=== PATIENT | female | born 1965 | race Caucasian/White ===

== ENCOUNTER → 2021-02-06 11:31 | Outpatient (CLI) | payer MEDICARE, MEDICAID, SELFPAY ==
--- NOTE | ~2021-02-06 | XR_ITS ---
XR chest 2V DATE: 02/06/2021 11:55 INDICATION: Cough TECHNIQUE: 2 views COMPARISON: 01/10/2019 2 view chest FINDINGS: Normal heart size. Right-sided aortic arch. No hilar or mediastinal enlargement. No pulmonary infiltrate or consolidation, pleural effusion or pulmonary vascular congestion or pneumo thorax. Osteopenia. IMPRESSION: No active cardiopulmonary disease Right-sided aortic arch No significant change since 01/10/2019 Reviewed, dictated and finalized at location A.
== END ==
PROVIDERS: PCP Internal Medicine; Visit Provider Internal Medicine
DX: R05 Cough (principal); Q25.49 Other congenital malformations of aorta
CPT/HCPCS: 71046

== ENCOUNTER → 2021-02-16 01:03 | Outpatient (CLI) | payer MEDICARE, MEDICAID, SELFPAY ==
[2021-02-16 20:53] LABS: SARS-CoV-2 RNA PCR Negative
== END ==
PROVIDERS: PCP Internal Medicine; Visit Provider Internal Medicine Gastroenterology
DX: Z01.812 Encounter for preprocedural laboratory examination (principal); Z20.822 Contact with and (suspected) exposure to COVID-19
CPT/HCPCS: C9803; U0003; U0005

== ENCOUNTER 2021-02-20 04:30 | Day surgery (SDC) | payer MEDICARE, MEDICAID, SELFPAY ==
[2021-02-07 13:54] VITALS: BMI 33.5
[2021-02-20 08:11] VITALS: BP 131/101; PULSE 100; RESP 20; TEMP 36.8; O2SAT 100; BMI 33.1
--- NOTE | 2021-02-20 08:57 | WPDANESEPPF ---
Anes - Initial Pre Proc Eval Procedure: Operation Date: 02/20/21 09:15 Proposed Procedures p Esophagogastroduodenoscopy & Screening Colonoscopy - Shai Dunne MD Date/Time: 02/20/21 08:57 Surgeon: Shai Dunne MD Pre Op Diagnosis: Neoplasm Screening, GERD Patient Data Age: 55 Gender: F Height: 5 ft Weight: 77 kg Last Vital Signs Temp 98.3 F 02/20/21 08:11 Pulse 100 02/20/21 08:11 Resp 20 02/20/21 08:11 BP 131/101 H 02/20/21 08:11 Pulse Ox 100 02/20/21 08:11 Allergies Allergy/AdvReac Type Severity Reaction Status Date / Time erythromycin base Allergy Severe Rash Verified 02/20/21 08:09 Sulfa (Sulfonamide Allergy Severe Rash Verified 02/20/21 08:09 Antibiotics) codeine Allergy Intermediate Rash, SOB Verified 02/20/21 08:09 Home Medications Medication Instructions Recorded Confirmed Type topiramate 100 mg tablet 100 mg PO BID 12/07/19 02/20/21 History albuterol sulfate 2.5 mg INHALATION Q6H PRN 05/30/20 02/20/21 History ascorbic acid (vitamin C) 500 mg 500 mg PO DAILY 05/30/20 02/20/21 History tablet aspirin 81 mg tablet,delayed 81 mg PO DAILY 05/30/20 02/20/21 History release calcium carbonate 500 mg calcium 500 mg PO DAILY 05/30/20 02/20/21 History (1,250 mg) tablet cetirizine 10 mg tablet 10 mg PO DAILY 05/30/20 02/20/21 History lamotrigine 100 mg tablet 100 mg PO BID 05/30/20 02/20/21 History lorazepam 1 mg tablet 1 mg PO QID PRN tablet 05/30/20 02/20/21 History multivitamin 1 tablet PO DAILY 05/30/20 02/20/21 History sennosides 8.6 mg tablet 17.2 mg PO DAILY PRN tablet 05/30/20 02/20/21 History spironolactone 100 mg tablet 100 mg PO DAILY 05/30/20 02/20/21 History vitamin E (dl, acetate) 400 unit 400 unit PO DAILY 05/30/20 02/20/21 History capsule fluticasone 250 mcg-salmeterol 50 1 inhalation INHALATION BID #180 07/27/20 02/20/21 Rx mcg/dose blistr powdr for each inhalation omeprazole 20 mg capsule,delayed 20 mg PO DAILY #90 cap 09/17/20 02/20/21 Rx release gabapentin 300 mg capsule 300 mg PO TID #270 cap 10/12/20 02/20/21 Rx gabapentin 600 mg tablet 600 mg PO TID #270 tablet 10/12/20 02/20/21 Rx montelukast 10 mg tablet 10 mg PO DAILY #90 tablet 10/12/20 02/20/21 Rx cyclobenzaprine 10 mg tablet See Rx Instructions .ROUTE 12/15/20 02/20/21 Rx .COMPLEX #270 tablet simvastatin 20 mg tablet 20 mg PO DAILY #90 tablet 12/15/20 02/20/21 Rx levothyroxine 50 mcg tablet 50 mcg PO DAILY #90 tablet 01/10/21 02/20/21 Rx losartan 50 mg tablet 50 mg PO DAILY #90 tablet 01/10/21 02/20/21 Rx bupropion HCl 150 mg 24 hr tablet, 150 mg PO QAM 02/06/21 02/20/21 History extended release escitalopram oxalate 20 mg tablet 20 mg PO DAILY 02/06/21 02/20/21 History hydrocodone 10 mg-acetaminophen 1 tablet PO Q6H PRN #120 tablet 02/06/21 02/20/21 Rx 325 mg tablet melatonin 5 mg PO HS PRN 02/07/21 02/20/21 History albuterol sulfate 90 mcg/actuation 2 puff INHALATION Q4-6H PRN #18 g 02/18/21 02/20/21 Rx aerosol inhaler Patient hx anesthesia problems: none Family hx anesthesia problems: none PMFSH Past Medical History Medical History (Updated 02/20/21 @ 09:03 by Luca Desai MD) Asthma Esophageal reflux disease Hyperlipidemia Hypertension Hypothyroidism Family History Family History Father Hypertension Family history of arthritis Malignant neoplasm of prostate Mother Hypertension Asthma Family history of malignant neoplasm of breast in first degree relative Family history of malignant neoplasm of kidney Social History Social History Smoking status: Never smoker Second hand tobacco smoke exposure: No Alcohol intake: never Substance use: never Substance use type: does not use Living arrangements: with family Spiritual care concerns: No Anes - Eval Final PreProcedure Day of Procedure
--- NOTE | 2021-02-20 09:06 | PM.HPGS ---
History of Present Illness History of Present Illness Consent: Risks, benefits, and alternatives have been discussed and questions answered. Patient agrees to proceed with procedure. Chief complaint: Neoplasm Screening, GERD Narrative: Selena Drake is a 55 year old female with gerd and bloating on omeprazole, also needs screening colonoscopy (she had egd and colonoscopy about 20 years ago because constipation) Review of Systems Constitutional: Constitutional: Denies headache(s) and Denies weakness Eyes: Eyes: Denies blurry vision ENT: Reports Normal hearing present, Denies headache(s) and Denies neck pain Cardiovascular: Cardiovascular: Denies chest pain and Denies dyspnea Respiratory: Respiratory: Denies dyspnea Gastrointestinal: Gastrointestinal: Reports no additional gastrointestinal complaints Genitourinary: Genitourinary: Denies dysuria Musculoskeletal: Musculoskeletal: Denies neck pain Integumentary/Breasts: Skin/Breast: Denies dry skin Neurologic: Reports Normal hearing present, Denies headache(s) and Denies weakness Psychiatric: Psychiatric: Denies anxiety Endocrine: Endocrine: Denies change in body appearance Hematologic/Lymphatic: Hematologic/Lymphatic: Denies easy bleeding Allergic/Immunologic: Allergic/Immunologic: Denies urticaria PMFSH Past Medical History Medical History (Updated 02/20/21 @ 09:07 by Shai Dunne MD) Asthma Colon cancer screening Constipation Esophageal reflux disease Hyperlipidemia Hypertension Hypothyroidism Family History Family History Father Hypertension Family history of arthritis Malignant neoplasm of prostate Mother Hypertension Asthma Family history of malignant neoplasm of breast in first degree relative Family history of malignant neoplasm of kidney Social History Social History Smoking status: Never smoker Second hand tobacco smoke exposure: No Alcohol intake: never Substance use: never Substance use type: does not use Living arrangements: with family Spiritual care concerns: No Meds Home Medications and Allergies Home Medications Medication Instructions Recorded Confirmed Type topiramate 100 mg tablet 100 mg PO BID 12/07/19 02/20/21 History albuterol sulfate 2.5 mg INHALATION Q6H PRN 05/30/20 02/20/21 History ascorbic acid (vitamin C) 500 mg 500 mg PO DAILY 05/30/20 02/20/21 History tablet aspirin 81 mg tablet,delayed 81 mg PO DAILY 05/30/20 02/20/21 History release calcium carbonate 500 mg calcium 500 mg PO DAILY 05/30/20 02/20/21 History (1,250 mg) tablet cetirizine 10 mg tablet 10 mg PO DAILY 05/30/20 02/20/21 History lamotrigine 100 mg tablet 100 mg PO BID 05/30/20 02/20/21 History lorazepam 1 mg tablet 1 mg PO QID PRN tablet 05/30/20 02/20/21 History multivitamin 1 tablet PO DAILY 05/30/20 02/20/21 History sennosides 8.6 mg tablet 17.2 mg PO DAILY PRN tablet 05/30/20 02/20/21 History spironolactone 100 mg tablet 100 mg PO DAILY 05/30/20 02/20/21 History vitamin E (dl, acetate) 400 unit 400 unit PO DAILY 05/30/20 02/20/21 History capsule fluticasone 250 mcg-salmeterol 50 1 inhalation INHALATION BID #180 07/27/20 02/20/21 Rx mcg/dose blistr powdr for each inhalation omeprazole 20 mg capsule,delayed 20 mg PO DAILY #90 cap 09/17/20 02/20/21 Rx release gabapentin 300 mg capsule 300 mg PO TID #270 cap 10/12/20 02/20/21 Rx gabapentin 600 mg tablet 600 mg PO TID #270 tablet 10/12/20 02/20/21 Rx montelukast 10 mg tablet 10 mg PO DAILY #90 tablet 10/12/20 02/20/21 Rx cyclobenzaprine 10 mg tablet See Rx Instructions .ROUTE 12/15/20 02/20/21 Rx .COMPLEX #270 tablet simvastatin 20 mg tablet 20 mg PO DAILY #90 tablet 12/15/20 02/20/21 Rx levothyroxine 50 mcg tablet 50 mcg PO DAILY #90 tablet 01/10/21 02/20/21 Rx losartan 50 mg tablet 50 mg PO DAILY #90 tablet
[2021-02-20] MEDS: BENZOCAINE (*SP) 60 ML SPRAY CAN (HURRICAINE) 1 SPRAY MUCOUS MEM (09:14)
[2021-02-20] MEDS: LACTATED RINGERS 1,000 ML 150 ML IV CONT (09:15)
[2021-02-20 09:46] VITALS: BP 102/71; PULSE 78; RESP 29; O2SAT 97
[2021-02-20 09:56] VITALS: BP 104/78; PULSE 83; RESP 28; O2SAT 99
[2021-02-20 10:06] VITALS: BP 120/76; PULSE 74; RESP 19; O2SAT 99
== END 2021-02-20 10:13 | disposition home or self-care (01) ==
PROVIDERS: PCP Internal Medicine; Visit Provider Internal Medicine Gastroenterology
PROC: 0DJ08ZZ Inspection of Upper Intestinal Tract, Via Natural or Artificial Opening Endoscopic (ICD-10-PCS; CPT 43235; principal; 2021-02-20 09:15)
DX: Z12.11 Encounter for screening for malignant neoplasm of colon (principal); D12.2 Benign neoplasm of ascending colon; D12.0 Benign neoplasm of cecum; D12.3 Benign neoplasm of transverse colon; K63.89 Other specified diseases of intestine; K64.8 Other hemorrhoids; K29.70 Gastritis, unspecified, without bleeding; K21.9 Gastro-esophageal reflux disease without esophagitis; E78.5 Hyperlipidemia, unspecified; J45.909 Unspecified asthma, uncomplicated; E03.9 Hypothyroidism, unspecified; F32.9 Major depressive disorder, single episode, unspecified; E66.9 Obesity, unspecified; Z68.33 Body mass index [BMI] 33.0-33.9, adult
CPT/HCPCS: 45385; 43239; 88305; J2704; J7120

== ENCOUNTER → 2022-08-19 16:33 | Outpatient (CLI) | payer MEDICARE, MEDICAID, SELFPAY ==
--- NOTE | ~2022-08-19 | XR_ITS ---
XR chest 2V DATE: 08/19/2022 16:47 INDICATION: Chronic cough TECHNIQUE: PA and lateral views COMPARISON: 02/06/2021 2 view chest FINDINGS: Right-sided aortic arch. Normal heart size. No hilar or mediastinal enlargement is evident. No pulmonary infiltrate or consolidation, pleural effusion or pulmonary vascular congestion or pneumo thorax is detected. IMPRESSION: Right-sided aortic arch No active cardiopulmonary disease Reviewed, dictated and finalized at location A.
== END ==
PROVIDERS: PCP Internal Medicine; Visit Provider Internal Medicine
DX: R05.3 Chronic cough (principal); Q25.47 Right aortic arch
CPT/HCPCS: 71046

== ENCOUNTER 2023-01-15 17:42 | Outpatient (CLI) | payer MEDICARE, MEDICAID, SELFPAY ==
[2023-01-15 18:29] LABS: SARS-CoV-2 RNA PCR Negative
== END 2023-01-15 17:43 | disposition home or self-care (01) ==
LOC: ANHLAB 17:42
PROVIDERS: PCP Internal Medicine; Visit Provider Internal Medicine
DX: R50.9 Fever, unspecified (principal); Z20.822 Contact with and (suspected) exposure to COVID-19
CPT/HCPCS: U0003; U0005

== ENCOUNTER 2023-03-18 10:42 | Outpatient (CLI) | payer MEDICARE, MEDICAID, SELFPAY ==
--- NOTE | ~2023-03-18 | US_ITS ---
US renal BI 03/18/2023 11:21 Procedure: Realtime transabdominal ultrasound of the kidneys and bladder. Indication: Hematuria after fall Comparison: No prior studies for comparison. Findings: Renal echotexture is normal bilaterally without contour deforming mass or renal calculus. T here is mild left hydronephrosis. The right kidney measures 10.2 cm and left kidney measures 11.3 cm. Bladder is not distended for evaluation. Impression: 1: Mild left hydronephrosis. Reviewed, dictated and finalized at location B. Impression: 1: Mild left hydronephrosis.
== END 2023-03-18 10:43 | disposition home or self-care (01) ==
PROVIDERS: PCP Internal Medicine; Visit Provider Internal Medicine
DX: R31.9 Hematuria, unspecified (principal); N13.30 Unspecified hydronephrosis
CPT/HCPCS: 76775

== ENCOUNTER 2023-09-05 19:06 | Emergency (ER) | payer MEDICARE, MEDICAID, SELFPAY ==
[2023-09-05] VITALS (13 sets, daily range): BP systolic 98–137; BP diastolic 56–95; PULSE 73–101; RESP 14–18; TEMP 36.8; O2SAT 96–100
--- NOTE | ~2023-09-05 | CT_ITS ---
EXAMINATION: CTA abdomen pelvis DATE: 09/05/2023 22:31 INDICATION: Abdominal injury. Back pain. TECHNIQUE: Computed tomographic angiography (CTA) of the abdomen and pelvis was performed without and with 100 mL Omnipaque-350 intravenous contrast. Automated exposure control and iterative reconstruct ion technique were employed. The dose-length product was 704.55 mGy-cm. Maximum intensity projection 3D-reconstructions of the aorta and other arteries were constructed by the technologist on a separate workstation. COMPARISON: CT abdomen and pelvis 09/30/2005 FINDINGS: The visualized portions of the lung bases demonstrate mild atelectasis. No pleural effusion . The liver, gallbladder, spleen, pancreas, and adrenal glands are normal. There is cortical thinning of the kidneys. There is a 4 mm stone in left kidney. There are no dilated loops of bowel. The appen jarred is normal. There is mild aortic atherosclerosis. There is no significant stenosis of celiac axis, superior mesenteric artery. The renal arteries, or inferior mesenteric artery. There are no patholog ically enlarged lymph nodes. There is no free intraperitoneal fluid. There is a subcutaneous hematoma in the right buttock. There are changes of anterior and posterior fusion procedures at L5-S1. There is severe lumbar spondylosis. Thoracolumbar levoscoliosis is noted. IMPRESSION: 1. Subcutaneous hematoma in the right buttock. Reviewed, dictated and finalized at location E. F EDUCATOR
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
[2023-09-05] MEDS: SODIUM CHLORIDE 0.9% IV 1,000 ML 999 ML IV CONT (21:03)
[2023-09-05] MEDS: fentaNYL CITRATE INJ (*CRX) 100 MCG/2 ML VIAL 25 MCG IV PUSH (21:04)
[2023-09-05 21:28] LABS: Basophils Percent Auto 0.6 % (0.2-1.2); Eosinophils Absolute Auto 0.1 K/mm3 (0-0.3); Eosinophils Percent Auto 1.3 % (0-4.4); Hematocrit 35.2 % (37.0-47.0); Hemoglobin 11.2 g/dL (12.0-15.0); Immature Granulocyte Absolute 0.02 K/mm3 (0.00-0.031); Immature Granulocyte Percent A 0.3 % (0-0.5); Lymphocytes Absolute Auto 2.35 K/mm3 (0.9-3.2); Lymphocytes Percent Auto 33.4 % (18.3-44.2); Mean Corpuscular HGB Conc 31.8 g/dl (32-36); Mean Corpuscular Hemoglobin 30.4 pg (26-34); Mean Corpuscular Volume 95.7 fl (80-100); Mean Platelet Volume 10.8 fl (7.4-10.4); Monocytes Absolute Auto 0.7 K/mm3 (0.1-0.6); Monocytes Percent Auto 9.4 % (2.6-8.5); Neutrophils Absolute Auto 3.9 K/mm3 (1.3-6.7); Platelet Count Result 275 k/mm3 (150-375); Red Blood Count 3.68 M/mm3 (4.2-5.4); Red Cell Distribution Width 13.6 % (11.5-14.5)
[2023-09-05 21:42] LABS: Alanine Aminotransferase 17 U/L (6-35); Albumin Level 4.4 g/dL (3.5-5.1); Alkaline Phosphatase 81 U/L (38-126); Anion Gap 13 mmol/L (8-16); Aspartate Amino Transferase 31 U/L (14-36); Bilirubin,Total 0.6 mg/dL (0.2-1.3); Blood Urea Nitrogen 15 mg/dL (7-17); Calcium 9.2 mg/dL (8.4-10.2); Carbon Dioxide 21 mmol/L (22-30); Chloride 100 mmol/L (98-107); Estimated CRCL calculation 50 ml/min; Estimated Glomerular Filt Rate 57; Glucose 114 mg/dL (65-110); Potassium 3.7 mmol/L (3.4-5.0); Sodium 134 mmol/L (137-145)
[2023-09-06] VITALS: O2SAT 94
[2023-09-06 00:15] VITALS: BP 108/91; O2SAT 98
[2023-09-06 00:16] VITALS: BP 108/91; O2SAT 100
[2023-09-06 00:30] VITALS: O2SAT 100
[2023-09-06 00:31] VITALS: O2SAT 100
[2023-09-06 00:32] VITALS: BP 108/64; PULSE 78; RESP 14; O2SAT 98
--- NOTE | 2023-09-06 01:31 | PC.NURSE ---
Ice pack provided to pt for pain/swelling
== END 2023-09-06 01:32 | disposition home or self-care (01) ==
PROVIDERS: Emergency Provider Physician Assistant; PCP Internal Medicine
DX: S30.0XXA Contusion of lower back and pelvis, initial encounter (principal); J45.909 Unspecified asthma, uncomplicated; I10 Essential (primary) hypertension; E78.5 Hyperlipidemia, unspecified; E03.9 Hypothyroidism, unspecified; K21.9 Gastro-esophageal reflux disease without esophagitis; Z98.1 Arthrodesis status; Z86.010 Personal history of colon polyps; Z90.710 Acquired absence of both cervix and uterus; Z79.82 Long term (current) use of aspirin; V03.00XA Pedestrian on foot injured in collision with car, pick-up truck or van in nontraffic accident, initial encounter
CPT/HCPCS: 36415; 74174; 80053; 85025; 96361; 96374; 99284; J3010; J7030; Q9967

== ENCOUNTER 2023-11-25 16:32 | Outpatient (CLI) | payer MEDICARE, MEDICAID, SELFPAY ==
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
== END 2023-11-25 16:33 | disposition home or self-care (01) ==
LOC: ANHIMG 16:33
PROVIDERS: PCP Internal Medicine; Visit Provider Physician Assistant
DX: T14.8XXA Other injury of unspecified body region, initial encounter (principal); M79.89 Other specified soft tissue disorders; V89.2XXA Person injured in unspecified motor-vehicle accident, traffic, initial encounter
CPT/HCPCS: 76705

== ENCOUNTER 2024-06-17 15:56 | Outpatient (CLI) | payer MEDICARE, MEDICAID, SELFPAY ==
--- NOTE | ~2024-06-17 | XR_ITS ---
EXAM: XR hip LT 2V w AP pelvis DATE: 06/17/2024 16:22 HISTORY: LEFT HIP PAIN, CHRONIC, FALL 6 MONTHS AGO . COMPARISON: None available. FINDINGS: Uncomplicated appearing, partially visualized posterior lumbar fusion hardware. Degenerativ e disc disease in the lumbar spine. Normal mineralization. No fracture or dislocation. No lytic or bl astic lesion. Mild degenerative change in the bilateral SI joints and bilateral hips. No erosion or p eriosteal change. Soft tissues within normal limits. IMPRESSION: Bilateral hip and SI joint osteoarthritis. Reviewed, dictated and finalized at location K.
== END 2024-06-17 15:57 | disposition home or self-care (01) ==
PROVIDERS: PCP Internal Medicine; Visit Provider Physician Assistant
DX: M16.0 Bilateral primary osteoarthritis of hip (principal); M53.3 Sacrococcygeal disorders, not elsewhere classified
CPT/HCPCS: 73502

== ENCOUNTER 2024-08-16 18:53 | Emergency (ER) | payer MEDICARE, MEDICAID, SELFPAY ==
--- NOTE | ~2024-08-16 | XR_ITS ---
EXAMINATION: XR foot LT min 3V DATE: 08/16/2024 19:22 INDICATION: Pain at the left first and second metatarsals post fall 2 weeks prior TECHNIQUE: Dorsoplantar, two oblique and lateral views of the left foot were obtained. COMPARISON: None. FINDINGS: Bone alignment is normal. No fracture. Joint spaces are normal. Small plantar calcaneal spur. Soft ti ssues are unremarkable. IMPRESSION: 1. No acute osseous abnormality. Reviewed, dictated and finalized at location A.
--- NOTE | 2024-08-16 19:04 | ED.LOWEXIN ---
HPI - Extremity Injury (Lower) General Chief Complaint: Extremity Injury, Lower Stated Complaint: Left Hip/Knee/Foot Pain Time Seen by Provider: 08/16/24 19:04 Source: patient, RN notes reviewed and old records reviewed Mode of arrival: ambulatory Limitations: no limitations History of Present Illness HPI Narrative: 58-year-old female presents to the [facility] with complaints of left hip, knee and foot pain after falling. Patient is most concerned about the MTP of the left foot. States he keep swelling up, bruising. Denies taking medications for her discomfort. States that she normally walks around barefoot. Onset (ago): week(s) (2) Related Data Home Medications Medication Instructions Recorded Confirmed topiramate 100 mg tablet 100 mg PO BID 12/07/19 08/16/24 ascorbic acid (vitamin C) 500 mg 500 mg PO DAILY 05/30/20 08/16/24 tablet cetirizine 10 mg tablet (Zyrtec) 10 mg PO DAILY 05/30/20 08/16/24 lamotrigine 100 mg tablet 100 mg PO BID 05/30/20 08/16/24 (Lamictal) lorazepam 1 mg tablet 1 mg PO QID PRN Anxiety 05/30/20 08/16/24 multivitamin (Multiple Vitamins 1 tablet PO DAILY 05/30/20 08/16/24 tablet) vitamin E (dl, acetate) 180 mg 400 unit PO DAILY 05/30/20 08/16/24 (400 unit) capsule biotin 10,000 mcg capsule 10,000 mcg PO DIRECTED 09/12/21 08/16/24 bupropion HCl 150 mg 24 hr tablet, 300 mg PO QAM 09/12/21 08/16/24 extended release calcium carbonate 500 mg PO .every other day 09/12/21 08/16/24 melatonin 5 mg chewable tablet 10 mg PO HS PRN Sleep 09/12/21 08/16/24 omega-3 fatty acids-fish oil 360 1 cap PO DAILY 09/12/21 08/16/24 mg-1,200 mg capsule (Fish Oil) zinc sulfate 50 mg zinc (220 mg) 50 mg PO DAILY 09/12/21 08/16/24 capsule (Orazinc) Allergies Allergy/AdvReac Type Severity Reaction Status Date / Time erythromycin base Allergy Severe Rash Verified 05/10/24 11:37 Sulfa (Sulfonamide Allergy Severe Rash Verified 05/10/24 11:37 Antibiotics) codeine Allergy Intermediate Rash, SOB Verified 05/10/24 11:37 Review of Systems Review of Systems: All systems reviewed & are unremarkable except as noted in HPI and below Constitutional: Constitutional: Reports no additional constitutional complaints ENT: Reports system reviewed and no additional complaints, except as documented Cardiovascular: Cardiovascular: Reports no additional cardiovascular complaints, Denies chest pain and Denies dyspnea Respiratory: Respiratory: Reports no additional respiratory complaints, Denies chest congestion, Denies cough and Denies dyspnea Gastrointestinal: Gastrointestinal: Reports no additional gastrointestinal complaints, Denies abdominal pain, Denies nausea and Denies vomiting Musculoskeletal: Musculoskeletal: Reports as per HPI, Reports arthralgias and Reports joint swelling Integumentary/Breasts: Skin/Breast: Reports system reviewed and no additional complaints, except as docu PMFSH Past Medical History Medical History Adenomatous colon polyp Asthma Colon cancer screening Constipation Constipation due to opioid therapy Esophageal reflux disease Hyperlipidemia Hypertension Hypothyroidism Family History Family History Father Hypertension Family history of arthritis Malignant neoplasm of prostate Mother Hypertension Asthma Family history of malignant neoplasm of breast in first degree relative Family history of malignant neoplasm of kidney Social History Social History Smoking status: Never smoker Second hand tobacco smoke exposure: No Alcohol intake: never Substance use: never Substance use type: does not use Lack of Transportation: No Lack of Food: Never True Current Housing: I Have Housing Concerned About Future Housing: No Difficulty Paying Gas/Electric Bills: No Difficulty Paying for Meds: No Curr
[2024-08-16 19:05] VITALS: BP 130/78; PULSE 83; RESP 16; TEMP 37.4; O2SAT 98
[2024-08-16 19:11] VITALS: BP 130/78; PULSE 83; RESP 16; TEMP 37.4; O2SAT 98
== END 2024-08-16 19:50 | disposition home or self-care (01) ==
PROVIDERS: Emergency Provider Nurse Practitioner; PCP Internal Medicine
DX: M79.672 Pain in left foot (principal); J45.909 Unspecified asthma, uncomplicated; K21.9 Gastro-esophageal reflux disease without esophagitis; E78.5 Hyperlipidemia, unspecified; I10 Essential (primary) hypertension; E03.9 Hypothyroidism, unspecified
CPT/HCPCS: 73630; 99213; G0463